=== PATIENT | male | born 1995 | race Two or more races ===

== ENCOUNTER 2025-04-12 08:46 | Emergency (ER) | payer OTHER ==
[~2025-04-12] VITALS: Ht 165.1 cm; Wt 70.3 kg
[2025-04-12 10:55] VITALS: BP 128/75; TEMP 98; O2SAT 98
== END 2025-04-12 10:55 ==
LOC: ER 08:50
DX: S80.02XA Contusion of left knee, initial encounter (principal); S80.01XA Contusion of right knee, initial encounter; S09.93XA Unspecified injury of face, initial encounter; Y09 Assault by unspecified means; Y93.89 Activity, other specified; Y92.89 Other specified places as the place of occurrence of the external cause; Y99.8 Other external cause status
CPT/HCPCS: 70450-TC; 70486-TC; 72125-TC